=== PATIENT | male | born 1990 | race Caucasian/White ===

== ENCOUNTER 2019-03-16 19:34 | Emergency (ER) | payer SELFPAY ==
[2019-03-16 20:41] LABS: Absolute Lymphocytes (CBC) 1.7 K/uL (0.7-4.9); Basophils % 0.3 % (0-1.3); Hematocrit 48.8 % (39.6-49.0); Lymphocytes % 12.5 % (15.3-44.8); MPV 8.3 fL (7.6-11.3); RBC Red Blood Cell Count 5.09 M/uL (4.33-5.43)
[2019-03-16] MEDS ORDERED: NACHLORIDE 0.45% 0 ML IV ONE (20:44)
[2019-03-16] MEDS ORDERED: NA CHLORIDE 0.9% 1,000 ML ONE ×2 (20:44→21:36)
[2019-03-16] MEDS ORDERED: ONDANSETRON 4 MG/2 ML VIAL ONE (20:44)
[2019-03-16] MEDS ORDERED: MORPHINE 4 MG/ML SYR ONE (20:44)
[2019-03-16 21:06] LABS: Potassium 3.7 mmol/L (3.5-5.1)
--- NOTE | 2019-03-16 22:10 | ER ---
Nurse's Notes [facility] – [place], [place] Name: José Hale Age: 28 yrs Sex: Male : 1990 Arrival Date: 03/16/2019 Time: 19:37 Bed 14 Private MD: Diagnosis: Left upper tooth pain Presentation: 03/16 19:58 Presenting complaint: Patient states: Pt states that he went to dentist yesterday for ls4 tooth pain. she stated that he may have abscess in left upper canine. Today he states that pain has gotten worse and now his left sinus feels clogged and swollen. Transition of care: patient was not received from another setting of care. Onset of symptoms was March 15, 2019 at 08:00. Risk Assessment: Do you want to hurt yourself or someone else? Patient reports no desire to harm self or others. Initial Sepsis Screen: Does the patient meet any 2 criteria? No. Patient's initial sepsis screen is negative. Does the patient have a suspected source of infection? No. Patient's initial sepsis screen is negative. Care prior to arrival: None. 19:58 Method Of Arrival: Ambulatory ls4 19:58 Acuity: LALITO 3 ls4 Triage Assessment: 20:03 General: Appears in no apparent distress. Behavior is calm, cooperative. Pain: Denies ls4 pain. EENT: Reports pain in upper left first bicuspid and upper left second bicuspid. Neuro: No deficits noted. Cardiovascular: No deficits noted. Respiratory: No deficits noted. GI: No deficits noted. : No deficits noted. Derm: No deficits noted. Musculoskeletal: No deficits noted. Historical: - Allergies: 20:03 No Known Allergies; ls4 - Home Meds: 20:03 ibuprofen 600 mg oral tab 1 tab every 6 hours for Pain [Active]; ls4 - PMHx: 20:03 None; ls4 - PSHx: 20:03 None; ls4 - Immunization history:: Adult Immunizations up to date, Last tetanus immunization: unknown, Flu vaccine is up to date. - Coronavirus screen:: The patient has NOT traveled to [place], [place], or [place] in the past 14 days. The patient has NOT had contact with known/suspected case of Coronavirus? Proceed with normal triage procedures. - Social history:: Smoking status: Patient/guardian denies using tobacco, but has a distant history of tobacco abuse. - Ebola Screening: : Patient negative for fever greater than or equal to 101.5 degrees Fahrenheit, and additional compatible Ebola Virus Disease symptoms Patient denies exposure to infectious person Patient denies travel to an Ebola-affected area in the 21 days before illness onset No symptoms or risks identified at this time. Screenin:05 Abuse screen: Denies threats or abuse. Denies injuries from another. Nutritional ls4 screening: No deficits noted. Tuberculosis screening: No symptoms or risk factors identified. Fall Risk None identified. Assessment: 20:45 General: SEE TRIAGE ASSESSMENT. ls4 21:08 Reassessment: Patient appears in no apparent distress at this time. Patient and/or ls4 family updated on plan of care and expected duration. Pain level reassessed. Patient is alert, oriented x 3, equal unlabored respirations, skin warm/dry/pink. 22:13 Reassessment: Patient appears in no apparent distress at this time. Patient and/or ls4 family updated on plan of care and expected duration. Pain level reassessed. Patient is alert, oriented x 3, equal unlabored respirations, skin warm/dry/pink. 22:32 Reassessment: Patient appears in no apparent distress at this time. Patient and/or ls4 family updated on plan of care and expected duration. Pain level reassessed. Patient is alert, oriented x 3, equal unlabored respirations, skin warm/dry/pink. Vital Signs: 20:06 BP 142 / 98; Pulse 116; Resp 16; Temp 100.4; Pulse Ox 98% on R/A; Pain 10/10; ls4 21:05 BP 141 / 97; Pulse 84; Resp 16; Pulse Ox 98% on R/A; Pain 8/10; ls4 22:10 BP 128 / 91; Pulse 87; Resp 16; Temp 98.7(O); Pulse Ox 99% ; Pain 6/10; ls4 23:07 BP 122 / 88; Pulse 84; Resp 14; Temp 98.4; Pulse Ox 99% on R/A; Pain 3/10; ls4 ED Course: 19:37 Patient arrived in ED. jg7 19:45 Alberto Hoff PA is PHCP. cp 19:45 Isaiah Fernandez MD is Attending Physician. cp 19:57 Kaleigh Ruiz, RN is Primary Nurse. ls4 20:01 Triage completed. ls4 20:05 Patient has correct armband on for positive identification. Bed in low position. Call ls4 light in reach. Side rails up X 1. Verbal reassurance given. 20:05 No provider procedures requiring assistance completed. ls4 20:06 Arm band placed on. ls4 20:46 Initial lab(s) drawn, by me, sent to lab. Inserted saline lock: 20 gauge in right ls4 antecubital area, using aseptic technique. Blood collected. Patient maintains SpO2 saturation greater than 95% on room air. 21:12 CT Facial Bones W/ Con \T\ Mpr In Process Unspecified. EDMS 23:10 IV discontinued, intact, bleeding controlled, No redness/swelling at site. Pressure ls4 dressing applied. Administered Medications: 20:44 Drug: NS 0.9% 1000 ml Route: IV; Rate: 1 bolus; Site: right antecubital; ls4 21:44 Follow up: IV Status: Completed infusion; IV Intake: 1000ml ls4 20:44 Drug: morphine 4 mg Route: IVP; Site: right antecubital; ls4 21:04 Follow up: Response: No adverse reaction; Marked relief of symptoms ls4 20:44 Drug: Zofran 4 mg Route: IVP; Site: right antecubital; ls4 21:04 Follow up: Response: No adverse reaction ls4 20:45 Drug: NS 0.9% 1000 ml Route: IV; Rate: 1 bolus; Site: right antecubital; ls4 22:30 Follow up: IV Status: Completed infusion; IV Intake: 1000ml ls4 22:29 Drug: Clindamycin 900 mg Route: IVPB; Infused Over: 30 mins; Site: right antecubital; ls4 23:00 Follow up: IV Status: Completed infusion; IV Intake: 50ml ls4 22:31 Drug: [place] (7.5 mg-325 mg) 1 tabs Route: PO; ls4 23:07 Follow up: Response: No adverse reaction; Marked relief of symptoms ls4 Intake: 21:44 IV: 1000ml; Total: 1000ml. ls4 22:30 IV: 1000ml; Total: 2000ml. ls4 23:00 IV: 50ml; Total: 2050ml. ls4 Outcome: 22:10 Discharge ordered by . cp 23:09 Discharged to home ambulatory. ls4 23:09 Condition: stable 23:09 Discharge instructions given to patient, family, Instructed on discharge instructions, follow up and referral plans. medication usage, Demonstrated understanding of instructions, follow-up care, medications, Prescriptions given X 2. 23:11 Patient left the ED. ls4 Signatures: Dispatcher [employer] EDMS Alberto Hoff PA PA cp Stewart, Lisa, RN RN ls4 Kira Brockg7
--- NOTE | 2019-03-16 22:10 | EDPHYS ---
Physician Documentation [facility] Name: José Hale Age: 28 yrs Sex: Male : 1990 Arrival Date: 03/16/2019 Time: 19:37 Bed 14 Private MD: ED Physician Isaiah Fernandez HPI: 03/16 20:20 This 28 yrs old Male presents to ER via Ambulatory with complaints of cp Toothache. 20:20 The patient presents with pain. The problem is located in the left upper jaw tooth. cp Onset: The symptoms/episode began/occurred and became worse today. Duration: The symptoms are continuous, and are steadily getting worse. Associated signs and symptoms: Pertinent positives: fever, swelling, facial, numbness left upper jaw area. Patient reports he saw dentist yesterday for left upper tooth pain and was told pain was due to recent eruption of tooth. Patient reports he was prescribed Ibuprofen for pain and has appt Monday with maxillary-facial surgeon for evaluation. Patient reports worsening pain today. Historical: - Allergies: 20:03 No Known Allergies; ls4 - Home Meds: 20:03 ibuprofen 600 mg oral tab 1 tab every 6 hours for Pain [Active]; ls4 - PMHx: 20:03 None; ls4 - PSHx: 20:03 None; ls4 - Immunization history:: Adult Immunizations up to date, Last tetanus immunization: unknown, Flu vaccine is up to date. - Coronavirus screen:: The patient has NOT traveled to [place], [place], or [place] in the past 14 days. The patient has NOT had contact with known/suspected case of Coronavirus? Proceed with normal triage procedures. - Social history:: Smoking status: Patient/guardian denies using tobacco, but has a distant history of tobacco abuse. - Ebola Screening: : Patient negative for fever greater than or equal to 101.5 degrees Fahrenheit, and additional compatible Ebola Virus Disease symptoms Patient denies exposure to infectious person Patient denies travel to an Ebola-affected area in the 21 days before illness onset No symptoms or risks identified at this time. ROS: 20:30 Constitutional: Positive for fever, Negative for body aches, chills, poor PO intake. cp 20:30 Eyes: Negative for injury, pain, redness, and discharge. cp 20:30 ENT: Positive for dental pain, Negative for drainage from ear(s), ear pain, sore throat, difficulty swallowing, difficulty handling secretions. 20:30 Respiratory: Negative for cough. 20:30 Abdomen/GI: Negative for abdominal pain, vomiting, diarrhea, constipation. 20:30 Skin: Negative for rash. 20:30 Neuro: Positive for numbness, tingling, of the left upper jaw, Negative for headache. 20:30 All other systems are negative. Exam: 20:35 Constitutional: The patient appears in no acute distress, alert, awake, non-toxic, well cp developed, well nourished. 20:35 Head/face: Noted is swelling, that is mild, of the left upper jaw, tenderness, that is cp severe, Sinus tenderness, that is marked, is located over the left maxillary sinus. 20:35 Eyes: Periorbital structures: appear normal, Pupils: equal, round, and reactive to light and accomodation, Extraocular movements: intact throughout, Conjunctiva: normal, no exudate, no injection, Sclera: no appreciated abnormality, Lids and lashes: appear normal, bilaterally. 20:35 ENT: External ear(s): are unremarkable, Ear canal(s): are normal, clear, TM's: bulging, is not appreciated, bilaterally, dullness, bilaterally, erythema, is not appreciated, bilaterally, Nose: is normal, Mouth: Lips: moist, Oral mucosa: pink and intact, moist, Gums: normal with healthy appearance, Tongue: is normal, abscess, is not appreciated, Posterior pharynx: Airway: no evidence of obstruction, patent, Tonsils: are normal in appearance, swelling, is not appreciated, erythema, is not appreciated, exudate, is not appreciated, Dental exam: abscess, is not appreciated, fractured teeth are noted, not appreciated, pain, that is severe, specifically in the upper left first bicuspid (#12), Voice: is normal. 20:35 Neck: ROM/movement: is normal, is supple, no meningismus, no nuchal rigidity, Lymph nodes: no appreciated lymphadenopathy. 20:35 Chest/axilla: Inspection: normal. 20:35 Cardiovascular: Rate: tachycardic, Rhythm: regular. 20:35 Respiratory: the patient does not display signs of respiratory distress, Respirations: normal, no use of accessory muscles, labored breathing, is not present, Breath sounds: are clear throughout, no decreased breath sounds, no stridor, no wheezing. 20:35 Abdomen/GI: Exam negative for discomfort, distension, guarding, Inspection: abdomen appears normal. 20:35 Skin: no rash present. Vital Signs: 20:06 BP 142 / 98; Pulse 116; Resp 16; Temp 100.4; Pulse Ox 98% on R/A; Pain 10/10; ls4 21:05 BP 141 / 97; Pulse 84; Resp 16; Pulse Ox 98% on R/A; Pain 8/10; ls4 22:10 BP 128 / 91; Pulse 87; Resp 16; Temp 98.7(O); Pulse Ox 99% ; Pain 6/10; ls4 23:07 BP 122 / 88; Pulse 84; Resp 14; Temp 98.4; Pulse Ox 99% on R/A; Pain 3/10; ls4 MDM: 19:45 Patient medically screened. cp 21:00 Differential diagnosis: dental caries, gingivitis, dental abscess, pericoronitis. cp 22:10 Data reviewed: vital signs, nurses notes, lab test result(s), radiologic studies, CT cp scan, I have discussed the patient's presentation/case with the attending Emergency Department Physician; and as a result, I will discharge patient. 22:10 Counseling: I had a detailed discussion with the patient and/or guardian regarding: the cp historical points, exam findings, and any diagnostic results supporting the discharge/admit diagnosis, lab results, radiology results, the need for outpatient follow up, for definitive care, maxillary-facial surgeon, to return to the emergency department if symptoms worsen or persist or if there are any questions or concerns that arise at home. Response to treatment: the patient's symptoms have markedly improved after treatment, and as a result, I will discharge patient. 03/16 20:18 Order name: CBC with Diff; Complete Time: 21:07 cp 03/16 21:09 Interpretation: Normal except: WBC 13.9; OSCAR% 78.6; LYM% 12.5; NEUT A 11.0. cp 03/16 20:18 Order name: BMP; Complete Time: 21:07 cp 03/16 21:09 Interpretation: Normal except: GFR 77. cp 03/16 20:18 Order name: CT Facial Bones W/ Con \T\ Mpr cp 03/16 20:18 Order name: IV; Complete Time: 20:45 cp 03/16 21:58 Order name: Vital Signs: include temp; Complete Time: 22:09 cp Administered Medications: 20:44 Drug: NS 0.9% 1000 ml Route: IV; Rate: 1 bolus; Site: right antecubital; ls4 21:44 Follow up: IV Status: Completed infusion; IV Intake: 1000ml ls4 20:44 Drug: morphine 4 mg Route: IVP; Site: right antecubital; ls4 21:04 Follow up: Response: No adverse reaction; Marked relief of symptoms ls4 20:44 Drug: Zofran 4 mg Route: IVP; Site: right antecubital; ls4 21:04 Follow up: Response: No adverse reaction ls4 20:45 Drug: NS 0.9% 1000 ml Route: IV; Rate: 1 bolus; Site: right antecubital; ls4 22:30 Follow up: IV Status: Completed infusion; IV Intake: 1000ml ls4 22:29 Drug: Clindamycin 900 mg Route: IVPB; Infused Over: 30 mins; Site: right antecubital; ls4 23:00 Follow up: IV Status: Completed infusion; IV Intake: 50ml ls4 22:31 Drug: [place] (7.5 mg-325 mg) 1 tabs Route: PO; ls4 23:07 Follow up: Response: No adverse reaction; Marked relief of symptoms ls4 Disposition: 23:15 Chart complete. cp 03/17 06:36 Co-signature as Attending Physician, Isaiah Fernandez MD I agree with the assessment and tw4 plan of care. Disposition: 03/16/19 22:10 Discharged to Home. Impression: Left upper tooth pain. - Condition is Stable. - Discharge Instructions: Dental Abscess, Dental Pain. - Prescriptions for Clindamycin HCl 300 mg Oral Capsule - take 1 capsule by ORAL route every 6 hours for 10 days; 40 capsule. Tylenol- Codeine #3 300-30 mg Oral Tablet - take 2 tablets by ORAL route every 6 hours As needed; 20 tablet. - Medication Reconciliation Form, Thank You Letter, Antibiotic Education, Prescription Opioid Use form. - Follow up: Private Physician; When: 03/18/2019; Reason: Recheck today's complaints, Maxillary/facial surgeon as scheduled. - Problem is new. - Symptoms have improved. Signatures: Dispatcher [employer] EDMS Alberto Hoff PA PA cp Wadley, Terrence, MD MD tw4 Kaleigh Ruiz RN RN ls4 Corrections: (The following items were deleted from the chart) 03/16 19:47 19:47 Splint - Wrist ordered. cp cp 23:11 22:10 03/16/2019 22:10 Discharged to Home. Impression: Left upper tooth pain. Condition ls4 is Stable. Forms are Medication Reconciliation Form, Thank You Letter, Antibiotic Education, Prescription Opioid Use. Follow up: Private Physician; When: 03/18/2019; Reason: Recheck today's complaints, Maxillary/facial surgeon as scheduled. Problem is new. Symptoms have improved. cp
[2019-03-16] MEDS ORDERED: CLINDAMYCIN 900MG/D5W 900 MG/50 ML IVPB IV ONE (22:19)
[2019-03-16] MEDS ORDERED: HYDROCODONE/APAP 7.5/325 MG TAB ONE (22:28)
[2019-03-16 23:19] VITALS: O2SAT 99
[2019-03-16 23:21] VITALS: BP 122/88; TEMP 98.4
--- NOTE | 2019-03-18 10:33 | RAD REPORT ---
EXAM DESCRIPTION: CT Maxillofacial With Intravenous Contrast CLINICAL HISTORY: The patient is 28 years old and is Male; left upper tooth pain TECHNIQUE: Axial computed tomography images of the face with intravenous contrast. Sagittal and co bucky reformatted images were created and reviewed. This CT exam was performed using one or more of the following dose reduction techniques: automated exposure control, adjustment of the mA and/or k V according to patient size, and/or use of iterative reconstruction technique. DLP: 488 mGy*cm COMPARISON: None. FINDINGS: BONES/JOINTS: No acute fracture. SOFT TISSUES: Unremarkable. ORBITS: Globes and orbits are within normal limits. SINUSES: Nodular mucosal thickening in the left maxillary sinus. No air-fluid level. DENTAL: Periapical lucency measuring 1 x 0.9 cm involving the left maxillary incisors. IMPRESSION: Limited evaluation of the oral cavity due to streak artifact arising from dental amalgam . Periapical lucency measuring 1 x 0.9 cm involving the left maxillary incisors and associated swelling Electronically signed by: Tj Goodwin DO 03/16/2019 9:30 PM [employer] Due to temporary technical issues with the PACS/Fluency reporting system, reports are being signed by the in house radiologist as a courtesy to ensure prompt reporting. The interpreting radiologist is f ully responsible for the content of the report.
== END 2019-03-16 23:11 | disposition home or self-care (01) ==
LOC: ER 19:34
DX: K08.89 Other specified disorders of teeth and supporting structures (principal); R50.9 Fever, unspecified
CPT/HCPCS: 36415; 70487; 76377; 80048; 85025; 96361; 96365; 96375; 99284; J2405; J7030; Q9967